=== PATIENT | male | born 1990 | race Caucasian/White ===

== ENCOUNTER 2018-09-20 22:22 | Emergency (ER) | payer OTHER ==
[~2018-09-20] VITALS: Ht 167.6 cm; Wt 85.3 kg
[~2018-09-20 22:22] MED LIST: BACI28.34 TOP
[2018-09-20 22:29] VITALS: Ht 167.6 cm; Wt 85.3 kg
[2018-09-20 23:07] VITALS: BP 142/87; PULSE 91; RESP 18
--- NOTE | 2018-09-21 01:23 | ERD ---
ER Documentation Chief Complaint Chief Complaint "infection on my foreskin x2 days ago". HPI 28-year-old male presents to the emergency department complaining of small red irritated area on his glans penis for the past 2 hours. He noticed it when he was in the shower. He denies any significant pain. He denies any dysuria. He denies any fevers, chills, testicular pain, penile discharge, or other symptoms at this time. He states he is monogamous with one female partner. He states there is a low likelihood of sexually transmitted infection. ROS All systems reviewed and are negative except as per history of present illness. Medications Home Meds Active Scripts Bacitracin* (Bacitracin Zinc Oint*) 28.35 Gm Oint, 1 APPLIC TOP BID, #1 TUB APPLI TO Prov:STEPHAN ESPINOZA PA-C 09/20/18 Allergies Allergies: Coded Allergies: No Known Allergy (Unverified , 09/20/18) PMhx/Soc Medical and Surgical Hx: pt denies Medical Hx, pt denies Surgical Hx Hx Alcohol Use: Yes (OCCASIONALLY) Hx Substance Use: No Hx Tobacco Use: No Smoking Status: Never smoker FmHx Family History: No diabetes Physical Exam Vitals Vital Signs Date Temp Pulse Resp B/P (MAP) Pulse Ox O2 O2 Flow FiO2 Time Delivery Rate 09/20/18 98.4 91 18 142/87 98 23:07 (105) 09/20/18 97.2 120 18 156/94 98 22:29 (114) Physical Exam Const: No acute distress Head: Atraumatic Eyes: Normal Conjunctiva ENT: Normal External Ears, Nose and Mouth. Neck: Full range of motion. No meningismus. Resp: Clear to auscultation bilaterally Cardio: Regular rate and rhythm, no murmurs Abd: Soft, non tender, non distended. Normal bowel sounds. No rebound tenderness or guarding. No McBurney's point tenderness. Exam: Penis: Small erythematous pustule noted to the left glans penis. No discharge. No surrounding erythema. Scrotum: Normal Hernia: None Testes/Epid: Non-tender w/ normal lie Cremaster: Reflex intact Lymph: No inguinal lymphadenopathy Discharge: None Skin: No petechiae or rashes Back: No midline or flank tenderness Ext: No cyanosis, or edema Neur: Awake and alert Psych: Normal Mood and Affect Procedures/MDM 28-year-old male presents the emergency department with history and physical examination most consistent with folliculitis. Much lower suspicion for sexually transmitted infection including but not limited to Chlamydia gonorrhea, syphilis, HIV. Patient is nontoxic and well-appearing and afebrile and he is stable for discharge and further outpatient management by his primary care physician. He was advised to return to the department immediately for any new, worsening, or concerning symptoms. He understands and agrees with the plan. Patient's blood pressure was elevated (>120/80) but appears stable without evidence of hypertension emergency or urgency. The patient is to follow-up and pursue outpatient monitoring and therapy with their primary care physician within 1 week and return immediately if they have any new, worsening, or concerning symptoms. Departure Diagnosis: Primary Impression: Folliculitis Condition: Fair Patient Instructions: Folliculitis Referrals: [facility] YOU HAVE RECEIVED A MEDICAL SCREENING EXAM AND THE RESULTS INDICATE THAT YOU DO NOT HAVE A CONDITION THAT REQUIRES URGENT TREATMENT IN THE EMERGENCY DEPARTMENT. FURTHER EVALUATION AND TREATMENT OF YOUR CONDITION CAN WAIT UNTIL YOU ARE SEEN IN YOUR DOCTORS OFFICE WITHIN THE NEXT 1-2 DAYS. IT IS YOUR RESPONSIBILITY TO MA KE AN APPOINTMENT FOR FOLOW-UP CARE. IF YOU HAVE A PRIMARY DOCTOR --you should call your primary doctor and schedule an appointment IF YOU DO NOT HAVE A PRIMARY DOCTOR YOU CAN CALL OUR PHYSICIAN REFERRAL HOTLINE AT IF YOU CAN NOT AFFORD TO SEE A PHYSICIAN YOU CAN CHOSE FROM THE FOLLOWING [facility] [address] [facility]. [facility] [address] [facility] [address] [facility] [facility] [address] [facility]. [facility] [address] [facility]. [facility]. [address] Additional Instructions: Call your primary care doctor TOMORROW for an appointment during the next 1-2 days.See the doctor sooner or return here if your condition worsens before your appointment time. STEPHAN ESPINOZA PA-C Sep 21, 2018 01:23
== END 2018-09-20 23:07 | disposition home or self-care (01) ==
LOC: FTE 22:22
DX: L01.02 Bockhart's impetigo (principal)
CPT/HCPCS: 99283